=== PATIENT | male | born 1955 | race Caucasian/White ===

== ENCOUNTER 2024-04-09 08:35 | Emergency (ER) | payer MEDICARE, MEDICAID, SELFPAY ==
[2024-04-09 08:43] VITALS: BP 142/96; PULSE 93; RESP 18; TEMP 36.9; O2SAT 100; BMI 22.1
--- NOTE | 2024-04-09 08:48 | PD.EDCHEST ---
ED Chest Pain RME/HPI General Chief Complaint: Chest Pain Stated Complaint: RIGHT RIB PAIN FROM X 2 DAYS Source: patient Arrival date/time: 04/09/24 08:35 68-year-old male with no known medical history presents to the emergency room with a chief complaint of pain and tenderness to his right rib cage. Patient states he fell and hit his right rib cage on a kitchen counter 3 days ago. Patient denies any chest pain. Mode of arrival: ambulatory Limitations: no limitations Related Data Previous Rx's ?Medication ?Instructions ?Recorded ibuprofen 800 mg tablet 800 mg PO TID PRN pain #30 tabs 08/11/22 famotidine 20 mg tablet 20 mg PO BID #30 tabs 09/18/22 sucralfate 1 gram tablet (Carafate) 1 g PO BID #30 tabs 09/18/22 Allergies Allergy/AdvReac Type Severity Reaction Status Date / Time fentanyl Allergy Severe Rash Verified 04/09/24 08:37 Review of Systems Review of Systems Systems Reviewed: All systems reviewed, normal except as documented Constitutional Constitutional: Reports system reviewed and no additional complaints, except as documented, Denies fatigue, Denies fever(s), Denies headache(s) and Denies weakness Eyes Eyes: Reports system reviewed and no additional complaints, except as documented, Denies blurry vision and Denies change in vision ENT Ears, Nose, Mouth, and Throat: Reports system reviewed and no additional complaints, except as documented, Denies otalgia, Denies headache(s), Denies nasal congestion, Denies throat swelling and Denies vertigo Cardiovascular Cardiovascular: Reports system reviewed and no additional complaints, except as documented, Denies chest pain, Denies dyspnea and Denies dyspnea on exertion Respiratory Respiratory: Reports system reviewed and no additional complaints, except as documented, Denies chest congestion, Denies cough, Denies dyspnea, Denies dyspnea on exertion and Denies wheezing Gastrointestinal Gastrointestinal: Reports system reviewed and no additional complaints, except as documented, Denies abdominal pain, Denies cramping, Denies nausea and Denies vomiting Genitourinary Genitourinary: Reports system reviewed and no additional complaints, except as documented, Denies dysuria and Denies hematuria Musculoskeletal Musculoskeletal: Reports system reviewed and no additional complaints, except as documented, Reports arthralgias and Denies back pain Integumentary/Breasts Skin/Breast: Reports system reviewed and no additional complaints, except as documented and Denies wounds Neurologic Neurologic: Reports system reviewed and no additional complaints, except as documented, Denies confusion, Denies headache(s), Denies lack of coordination, Denies vertigo and Denies weakness Psychiatric Psychiatric: Reports system reviewed and no additional complaints, except as documented, Denies anxiety, Denies confusion, Denies depression, Denies paranoia, Denies suicidal ideation and Denies tactile hallucinations Endocrine Endocrine: Reports system reviewed and no additional complaints, except as documented and Denies fatigue Hematologic/Lymphatic Hematologic/Lymphatic: Reports system reviewed and no additional complaints, except as documented and Denies lymphadenopathy Allergic/Immunologic Allergic/Immunologic: Reports system reviewed and no additional complaints, except as documented, Denies throat swelling, Denies urticaria and Denies wheezing ED Exam General Limitations: Present no limitations General appearance: Present alert and in no apparent distress Head Head exam: Present atraumatic Eye Eye exam: Present normal appearance, PERRL and EOMI ENT ENT exam: Present normal exam, normal oropharynx and mucous membranes moist Neck Neck exam: Present normal inspection, full ROM and trachea midline Chest Chest inspection: Present normal inspection, symmetric chest wall rise and tenderness Expanded Chest Exam Trauma: Absent crepitus, wound or penetrating wound Breast: right: tenderness Respiratory Respiratory exam: Present normal lung sounds bilaterally; Absent respiratory distress, wheezes, stridor, accessory muscle use or prolonged expiratory phase Cardiovascular Cardiovascular exam: Present regular rate, normal rhythm and normal heart sounds Abdominal Exam Abdominal exam: Present soft and normal bowel sounds Extremities Exam Extremities exam: Present normal inspection and full ROM Back Exam Back exam: Present normal inspection and full ROM Neurological Exam Neurological exam: Present alert, oriented X3 and CN II-XII intact Psychiatric Psychiatric exam: Present normal affect and normal mood Skin Skin exam: Present warm, dry, intact and normal color Course Quality Measures none Vital Signs Vital signs: Vital Signs Temperature 98.5 F 04/09/24 08:43 Pulse Rate 93 04/09/24 08:43 Respiratory Rate 18 04/09/24 08:43 Blood Pressure 142/96 H 04/09/24 08:43 Pulse Oximetry (%) 100 04/09/24 08:43 Oxygen Delivery Method Room Air 04/09/24 08:43 O2 saturation 100% within normal limits Chest Pain MDM Narrative MDM Narrative:: 68-year-old male with no known medical history presents to the emergency room with a chief complaint of pain and tenderness to his right rib cage. Patient states he fell and hit his right rib cage on a kitchen counter 3 days ago. Patient denies any chest pain. Patient data External records reviewed:: [facility] previous records Clinical information provided by:: patient Social determinants that could affect healthcare access:: none Patient has the following chronic illnesses:: No chronic illness How is presenting disease/condition affected by chronic disease/condition?: no chronic disease Evaluation data The following diagnostics were reviewed and interpreted by me:: lab results and radiology exam(s) Lab and/or radiology exams considered but not ordered:: Labs and radiology exams considered and ordered Interpretation Summary: Rib x-ray- Medications / Prescriptions Medications or Prescriptions considered but not ordered:: No medication given Medication administrations:: No medication given Consultations Consultation(s) initiated? (list below): No Diagnosis Chest Pain Differential Diagnosis: fracture of rib, pneumothorax, costochondritis and chest pain Admission Indicated Admission indicated?: not indicated Admission Request Was there a request for admission?: No Disposition Plan Disposition Plan: Discharge Discharge Attestation Discharge Attestation: The patient and all family members were given an opportunity to ask questions and understood the discharge instructions. Discharge instructions specifically effects, indications for sooner follow up or return to the emergency department, and the expected course of current diagnosis. Patient condition: Stable Discharge Plan Prescriptions/Referrals Prescriptions/Med Rec: No Action ibuprofen 800 mg tablet 800 mg PO TID PRN (Reason: pain) Qty: 30 0RF sucralfate [Carafate] 1 gram tablet 1 g PO BID Qty: 30 1RF famotidine 20 mg tablet 20 mg PO BID Qty: 30 1RF Patient/Caregiver Discharge Instructions Print Language: Czech
--- NOTE | 2024-04-09 08:50 | XR_ITS ---
Examination: Ribs, right, with PA chest, 5 views Technique: Chest PA, RIBS AP, RPO, LPO, AP coned lower ribs 5 views Exam date and time: April 09, 2024 0940 hrs. Indications: Patient fell 2 days ago with injury to the right chest, right chest pain soft nodular opacities in the upper lung zone 17 mm cavity in the right midlung zone No pneumothorax Normal heart size Moderate osteopenia Old fracture right 10th rib anteriorly Acute appearing fracture anterior right eighth rib with mild offset Impression: Acute appearing fracture right eighth rib anteriorly with mild offset Nodular parenchymal disease in the right upper lobe 17 mm cavitary lesion right midlung Differential would include active tuberculosis, consider CT chest without contrast follow-up
--- NOTE | 2024-04-09 10:55 | PD.EDRME ---
Rapid Medical Screening Exam [facility] Arrival date/time: 04/09/24 08:35 68-year-old male with no known medical history presents to the emergency room with a chief complaint of pain and tenderness to his right rib cage. Patient states he fell and hit his right rib cage on a kitchen counter 3 days ago. Patient denies any chest pain. I have greeted and performed a focused initial assessment of this patient. A comprehensive ED assessment and evaluation of the patient, analysis of all test results, and completion of the medical decision making process will be conducted by additional ED providers. Chief Complaint: Chest Pain Time Seen by Provider: 04/09/24 08:50 Vital signs: Vital Signs Temperature 98.5 F 04/09/24 08:43 Pulse Rate 93 04/09/24 08:43 Respiratory Rate 18 04/09/24 08:43 Blood Pressure 142/96 H 04/09/24 08:43 Pulse Oximetry (%) 100 04/09/24 08:43 Oxygen Delivery Method Room Air 04/09/24 08:43 Vital signs reviewed by provider: Yes
--- NOTE | 2024-04-09 12:08 | PC.NURSE ---
PT HAS BEEN CALLED MULTIPLE TIMES BY CT AND LAB AND THEY HAVE RECEIVED NO ANSWER. PROVIDER KAJAL IS AWARE.
== END 2024-04-09 13:19 | disposition left against medical advice (07) ==
PROVIDERS: Emergency Provider Emergency Medicine
DX: R07.81 Pleurodynia (principal); Z53.29 Procedure and treatment not carried out because of patient's decision for other reasons
CPT/HCPCS: 71101; 80053; 85025; 86635; 99281

== ENCOUNTER 2024-06-02 01:22 | Emergency (ER) | payer MEDICARE, MEDICAID, SELFPAY ==
[2024-06-02 01:22] VITALS: BMI 21.5
[2024-06-02 01:28] VITALS: BP 132/76; PULSE 87; RESP 18; TEMP 37.1; O2SAT 98
--- NOTE | 2024-06-02 01:30 | EDNOTE_ITS ---
ED Skin Abcess FB-RME/HPI General Chief complaint: Skin/Abscess/Foreign Body Stated complaint: BELLY BUTTON REDNESS Time Seen by Provider: 06/02/24 01:28 Arrival date/time: 06/02/24 01:22 68 year old male present to emergency room with c/o anthony button redness for 1 day. update with tetanus LOCATION: belly button SEVERITY: Symptoms are described as being severe with limitations on activities of daily living QUALITY: Symptoms are described as being dull or achy CONTEXT: The patient is unable to identify any inciting events. DURATION/TIMING: The symptoms started approximately one day ago ASSOCIATED SYMPTOMS: The patient is unable to identify any other associated symptoms. MODIFYING FACTORS: The patient is unable to identify any alleviating or aggravating symptoms. PERTINENT ROS: denies IVDU, states no immunocompromising condition, denies any penetrating trauma, no fever, no unexplained nausea or vomiting, no headache, no chest pain REVIEW OF SYSTEMS: See History of Present Illness - with the exception of those mentioned in the history of present illness, all other systems reviewed and reported as negative GENERAL: In general the patient is awake, interactive, in an emergency department gurney. HEAD/EYES/EARS/NOSE/THROAT: normo-cephalic, atraumatic, mucus membranes are moist, anicteric, palpebral conjunctiva is pink, trachea is midline. ABDOMEN: soft, + belly button superficial infection no red streaking no masses appreciated BACK: normal range of motion without pain. NEUROLOGICAL: cranio-facial features are symmetric, moves all four extremities equally without obvious limitations or weakness. EXTREMITY: no tenderness to palpation over the long bones or large joints of the bilateral upper and lower extremities, no joint swelling, no joint erythema, no signs of trauma, no unilateral leg swelling and no peripheral edema. SKIN: warm, dry, well-perfused, no jaundice, no rash, no telangiectasias or petechia. PSYCH: calm, cooperative, no evidence of psychosis or agitation Related Data Previous Rx's ?Medication ?Instructions ?Recorded ibuprofen 800 mg tablet 800 mg PO TID PRN pain #30 t abs 08/11/22 famotidine 20 mg tablet 20 mg PO BID #30 tabs sucralfate 1 gram tablet (Carafate) 1 g PO BID #30 tab s 09/18/22 Allergies Allergy/AdvReac Type Severity Reaction Status Date / Time fentanyl Allergy Severe Rash Verified 06/02/24 01:24 Course Course Course Narrative: Patient is admitted to Emergency Department and evaluated. Patient appears well and is non-toxic and well hydrated. Patient appears to have an infected wound cellulitis. applied triple antibiotic, avoid touching and rubbing area. Instructed to apply warm compresses. Quality Measures none Vital Signs Vital signs: Vital Signs Temperature 98.7 F 06/02/24 01:28 Pulse Rate 87 06/02/24 01:28 Respiratory Rate 18 06/02/24 01:28 Blood Pressure 132/76 H 06/02/24 01:28 Pulse Oximetry (%) 98 06/02/24 01:28 Oxygen Delivery Method Room Air 06/02/24 01:28 Skin / Abscess / Foreign Body Patient data External records reviewed:: [facility] previous records Clinical information provided by:: patient Social determinants that could affect healthcare access:: housing Patient has the following chronic illnesses:: as stated in chart How is presenting disease/condition affected by chronic disease/condition?: uneffected by Evaluation data The following diagnostics were reviewed and interpreted by me:: other (specify) (na ) Lab and/or radiology exams considered but not ordered:: na Interpretation Summary: na Medications / Prescriptions Medications or Prescriptions considered but not ordered:: na Medication administrations:: na Consultations Consultation(s) initiated? (list below): No Diagnosis Skin/Abscess Differential Diagnosis: cellulitis and impetigo Most likely diagnosis given after review of the tests above:: infect belly button Admission Indicated Admission indicated?: not indicated Admission Request Was there a request for admission?: No Disposition Plan Disposition Plan: Discharge Discharge Attestation Discharge Attestation: The patient and all family members were given an opportunity to ask questions and understood the discharge instructions. Discharge instructions specifically effects, indications for sooner follow up or return to the emergency department, and the expected course of current diagnosis. Patient condition: Stable Discharge Plan Plan Patient Disposition: HOME (Self Care) Health Concerns: Follow with PMD as directed apply triple antibiotic to affect area, clean and dry daily Return to ED if sx worsen Prescriptions/Referrals Prescriptions/Med Rec: No Action ibuprofen 800 mg tablet 800 mg PO TID PRN (Reason: pain) Qty: 30 0RF sucralfate [Carafate] 1 gram tablet 1 g PO BID Qty: 30 1RF famotidine 20 mg tablet 20 mg PO BID Qty: 30 1RF Problem List Clinical Impression: Infected pierced belly button Patient/Caregiver Discharge Instructions Education Materials: ED Wound Check (Infection) Print Language: Serbian Stand Alone Forms: Katie Award Info., Patient Portal Info Letter
== END 2024-06-02 01:55 | disposition home or self-care (01) ==
LOC: SERX 04:36
PROVIDERS: Emergency Provider Emergency Medicine; PCP Family Medicine
DX: L08.9 Local infection of the skin and subcutaneous tissue, unspecified (principal)
CPT/HCPCS: 99281

== ENCOUNTER 2024-06-17 09:38 | Emergency (ER) | payer MEDICARE, MEDICAID, SELFPAY ==
[2024-06-17 10:06] VITALS: BP 158/92; PULSE 78; RESP 16; TEMP 36.9; O2SAT 96
--- NOTE | 2024-06-17 10:13 | PD.EDSKIN ---
ED Skin Abcess FB-RME/HPI General Chief complaint: Animal Bite Stated complaint: SPIDER BITE ON ANKLE LAST NIGHT; VERY PAINFUL Time Seen by Provider: 06/17/24 09:57 Arrival date/time: 06/17/24 09:38 68-year-old male presents to emergency department today for complaint of spider bite medial aspect of the right ankle since last night patient reports pain to the ankle at the site of bite Limitations: no limitations Related Data Previous Rx's ?Medication ?Instructions ?Recorded ibuprofen 800 mg tablet 800 mg PO TID PRN pain #30 tabs 08/11/22 famotidine 20 mg tablet 20 mg PO BID #30 tabs 09/18/22 sucralfate 1 gram tablet (Carafate) 1 g PO BID #30 tabs 09/18/22 clindamycin HCl 300 mg capsule 300 mg PO TID 7 days #21 caps 06/17/24 ibuprofen 600 mg tablet 600 mg PO Q6H #30 tabs 06/17/24 mupirocin 2 % topical ointment 1 applic topical TID 10 days #22 06/17/24 grams Allergies Allergy/AdvReac Type Severity Reaction Status Date / Time fentanyl Allergy Severe Rash Verified 06/17/24 09:42 Review of Systems Review of Systems Systems Reviewed: All systems reviewed, normal except as documented Constitutional Constitutional: Reports system reviewed and no additional complaints, except as documented, Denies fever(s) and Denies headache(s) Eyes Eyes: Reports system reviewed and no additional complaints, except as documented and Denies blurry vision ENT Ears, Nose, Mouth, and Throat: Reports system reviewed and no additional complaints, except as documented, Denies headache(s), Denies nasal congestion and Denies nasal discharge Cardiovascular Cardiovascular: Reports system reviewed and no additional complaints, except as documented, Denies chest pain and Denies dyspnea Respiratory Respiratory: Reports system reviewed and no additional complaints, except as documented, Denies chest congestion, Denies cough and Denies dyspnea Gastrointestinal Gastrointestinal: Reports system reviewed and no additional complaints, except as documented and Denies abdominal pain Integumentary/Breasts Skin/Breast: Reports system reviewed and no additional complaints, except as documented, Denies rash and Reports other (Mild erythema, what appears to be insect bite medial aspect right ankle) Neurologic Neurologic: Reports system reviewed and no additional complaints, except as documented, Reports as per HPI and Denies headache(s) Past Medical History Past Medical History NEUROLOGIC: Negative Neurological Disorders CARDIAC: Positive Cardiac Disorders and Hypertension; Negative Congestive Heart Failure RESPIRATORY: Negative Chronic Obstructive Pulmonary Disease (COPD) or Asthma GASTROINTESTINAL: Negative Gastrointestinal Disorders GENITOURINARY: Negative Genitourinary Disorders or Renal Disease MUSCULOSKELETAL: Negative Musculoskeletal Disorders ENDOCRINE: Negative Endocrine Disorders, Diabetes Mellitus Type 1 or Diabetes Mellitus Type 2 HEMATOLOGIC: Negative Blood Disorders or Sickle Cell Disease Social History SMOKING STATUS: Current every day smoker ED Exam General Limitations: Present no limitations General appearance: Present alert and in no apparent distress Head Head exam: Present atraumatic Eye Eye exam: Present normal appearance, PERRL and EOMI ENT ENT exam: Present normal exam, normal oropharynx and mucous membranes moist Neck Neck exam: Present normal inspection, full ROM and trachea midline Chest Chest inspection: Present normal inspection and symmetric chest wall rise Respiratory Respiratory exam: Present normal lung sounds bilaterally Cardiovascular Cardiovascular exam: Present regular rate, normal rhythm and normal heart sounds Abdominal Exam Abdominal exam: Present soft and normal bowel sounds Extremities Exam Extremities exam: Present normal inspection and full ROM Back Exam Back exam: Present normal inspection and full ROM Neurological Exam Neurological exam: Present alert, oriented X3 and CN II-XII intact Psychiatric Psychiatric exam: Present normal affect and normal mood Skin Skin exam: Present warm, dry and other (Insect bite medial aspect right ankle) Course Quality Measures none Vital Signs Vital signs: Vital Signs Temperature 98.4 F 06/17/24 10:06 Pulse Rate 78 06/17/24 10:06 Respiratory Rate 16 06/17/24 10:06 Blood Pressure 158/92 H 06/17/24 10:06 Pulse Oximetry (%) 96 06/17/24 10:06 Oxygen Delivery Method Room Air 06/17/24 10:06 O2 saturation 96% room air within normal limits Skin / Abscess / Foreign Body MDM Narrative MDM Narrative:: 68-year-old male presents to emergency department today for complaint of spider bite medial aspect of the right ankle since last night patient reports pain to the ankle at the site of bite On exam patient well-appearing patient does not appear toxic no acute distress On exam patient has what appears to be a bite to the medial aspect of right ankle patient be treated course of antibiotics Patient discharged home in no distress to follow-up with primary care doctor in the next 24 to 48 hours and for any worsening symptoms to return to the ER immediately Patient data External records reviewed:: [facility] previous records Clinical information provided by:: patient Social determinants that could affect healthcare access:: none Patient has the following chronic illnesses:: See history How is presenting disease/condition affected by chronic disease/condition?: exacerbated by Evaluation data The following diagnostics were reviewed and interpreted by me:: other (specify) Lab and/or radiology exams considered but not ordered:: Consider not ordered Interpretation Summary: N/A Medications / Prescriptions Medications or Prescriptions considered but not ordered:: Given Medication administrations:: Given Consultations Consultation(s) initiated? (list below): No Diagnosis Skin/Abscess Differential Diagnosis: abscess of skin or subcutaneous tissue and cellulitis Most likely diagnosis given after review of the tests above:: Insect bite Admission Indicated Admission indicated?: not indicated Admission Request Was there a request for admission?: No Disposition Plan Disposition Plan: Discharge Discharge Attestation Discharge Attestation: The patient and all family members were given an opportunity to ask questions and understood the discharge instructions. Discharge instructions specifically effects, indications for sooner follow up or return to the emergency department, and the expected course of current diagnosis. Patient condition: Stable Discharge Plan Plan Patient Disposition: HOME (Self Care) Discharge Disposition comment: Stable Prescriptions/Referrals Prescriptions/Med Rec: New clindamycin HCl 300 mg capsule 300 mg PO TID 7 Days Qty: 21 0RF mupirocin 2 % ointment 1 applic topical TID 10 Days Qty: 22 0RF ibuprofen 600 mg tablet 600 mg PO Q6H Qty: 30 0RF No Action ibuprofen 800 mg tablet 800 mg PO TID PRN (Reason: pain) Qty: 30 0RF sucralfate [Carafate] 1 gram tablet 1 g PO BID Qty: 30 1RF famotidine 20 mg tablet 20 mg PO BID Qty: 30 1RF Problem List Clinical Impression: Insect bite of ankle Patient/Caregiver Discharge Instructions Education Materials: ED Insect Bite Additional Instructions: Please follow up with your primary care doctor in the next 24-48hrs for any worsening symptoms return here immediately Print Language: Czech Stand Alone Forms: Katie Award Info., Work/School Release, Patient Portal Info Letter PA/[employer] Supervising Physician PA/[employer] Supervising Physician: Dr. brooks
== END 2024-06-17 10:19 | disposition home or self-care (01) ==
LOC: SERX 10:30
PROVIDERS: Emergency Provider Emergency Medicine
DX: S90.561A Insect bite (nonvenomous), right ankle, initial encounter (principal); W57.XXXA Bitten or stung by nonvenomous insect and other nonvenomous arthropods, initial encounter
CPT/HCPCS: 99281

== ENCOUNTER 2024-07-24 13:32 | Emergency (ER) | payer MEDICARE, MEDICAID, SELFPAY ==
[2024-07-24 13:43] VITALS: BP 148/102; PULSE 84; RESP 20; TEMP 36.7; O2SAT 97
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
--- NOTE | 2024-07-24 14:05 | EDNOTE_ITS ---
ED General RME/HPI General Chief complaint: Eye Problems Stated complaint: Metal in right eye Time Seen by Provider: 07/24/24 13:49 Arrival date/time: 07/24/24 13:32 Limitations: no limitations RME / HPI RME / HPI narrative: 07/24/24 13:32 This is a case of 68-year-old male who came in the emergency room due to right eye injury history of present illness started few minutes prior to arrival in the emergency room and the patient accidentally stabbed by a metal in his right eye now with bleeding under the right lower eyelid DR. NICOLE MCMULLEN ED EVALUATION: 68 year old male presents to the Emergency Department with complaint of right eye injury. Prior to arrival, patient was pulling a piece of metal and it got loose and hit his right eye causing a right eye injury/ abrasion (see exam). No other injuries reported. Related Data Previous Rx's ?Medication ?Instructions ?Recorded ibuprofen 800 mg tablet 800 mg PO TID PRN pain #30 t abs 08/11/22 famotidine 20 mg tablet 20 mg PO BID #30 tabs sucralfate 1 gram tablet (Carafate) 1 g PO BID #30 tab s 09/18/22 ibuprofen 600 mg tablet 600 mg PO Q6H #30 tabs 06/17 tobramycin 0.3 % eye drops 1 drp ophthalmic (eye) Q2H #5 mL 07/24/24 tramadol 50 mg tablet 50 mg PO BID PRN pain #7 tab s 07/24/24 Allergies Allergy/AdvReac Type Severity Reaction Status Date / Time fentanyl Allergy Severe Rash Verified 07/24/24 13:36 Review of Systems Review of Systems Systems Reviewed: All systems reviewed, normal except as documented Past Medical History Past Medical History CARDIAC: Positive Cardiac Disorders and Hypertension Social History SMOKING STATUS: Current every day smoker SUBSTANCE USE: marijuana and methamphetamine ED Exam General Limitations: Present no limitations General appearance: Present alert and in no apparent distress Eye Eye exam: Present other (An abrasion to the junction of the right conjunctiva and cornea. Normal vision. Also abrasion of lower eyelid, right.) ENT ENT exam: Present normal exam, normal oropharynx and mucous membranes moist Neck Neck exam: Present normal inspection, full ROM and trachea midline Chest Chest inspection: Present normal inspection and symmetric chest wall rise Respiratory Respiratory exam: Present normal lung sounds bilaterally Cardiovascular Cardiovascular exam: Present regular rate, normal rhythm and normal heart sounds Abdominal Exam Abdominal exam: Present soft and normal bowel sounds Extremities Exam Extremities exam: Present normal inspection and full ROM Back Exam Back exam: Present normal inspection and full ROM Neurological Exam Neurological exam: Present alert, oriented X3 and CN II-XII intact Psychiatric Psychiatric exam: Present normal affect and normal mood Skin Skin exam: Present warm, dry, intact and normal color Course Quality Measures none Orders Category Date Time Status Fluorescein-Benoxin 0.3%-0.4% Med 07/24/24 15:24 Discontinued 1 drop BOTH EYES X1 ONE HYDROcodone*/APAP 5/325 [[place] 5/325] Med 07/24/24 13:55 Discontinued 1 tab PO X1 ONE HYDROmorphone INJ [Dilaudid Inj] Med 07/24/24 13:59 Discontinued 1 mg IM X1 ONE Ondansetron Odt [Zofran Odt] Med 07/24/24 13:59 Discontinued 4 mg PO X1 ONE TETRACAINE Op Courtney 0.5% [Pontocaine Op Courtney 0.5%] Med 07/24/24 13:55 Discontinued 1 drop RIGHT EYE X1 ONE TETRACAINE Op Courtney 0.5% [Pontocaine Op Courtney 0.5%] Med 07/24/24 13:59 Discontinued 1 drop RIGHT EYE X1 ONE Vital Signs Vital signs: Vital Signs Temperature 98.0 F 07/24/24 13:43 Pulse Rate 84 07/24/24 13:43 Respiratory Rate 20 07/24/24 13:43 Blood Pressure 148/102 H 07/24/24 13:43 Pulse Oximetry (%) 97 07/24/24 13:43 Oxygen Delivery Method Room Air 07/24/24 13:43 Discharge Plan Plan Patient Disposition: HOME (Self Care) Patient condition on transfer: Stable Prescriptions/Referrals Prescriptions/Med Rec: New tramadol 50 mg tablet 50 mg PO BID PRN (Reason: pain) Qty: 7 0RF tobramycin 0.3 % drops 1 drp ophthalmic (eye) Q2H Qty: 5 0RF No Action ibuprofen 600 mg tablet 600 mg PO Q6H Qty: 30 0RF ibuprofen 800 mg tablet 800 mg PO TID PRN (Reason: pain) Qty: 30 0RF sucralfate [Carafate] 1 gram tablet 1 g PO BID Qty: 30 1RF famotidine 20 mg tablet 20 mg PO BID Qty: 30 1RF Referrals: Carlos Manuel Hale MD [Primary Care Provider] - In 1 week Problem List Clinical Impression: Contusion of eye, right, Abrasion of cornea, right, Abrasion of eyelid, right Patient/Caregiver Discharge Instructions Discharge Activity: activity as tolerated Education Materials: ED Abrasions, ED Eye Contusion, ED Corneal Abrasion Print Language: Dutch Stand Alone Forms: Katie Award Info., Patient Portal Info Letter MDM Narrative Procedures done or offered: Procedure: Fluorescein staining of the right cornea Reason for Exam: right eye injury, suspected corneal abrasion Exam showed there was an abrasion to the junction of the conjunctiva and cornea. Patient tolerated procedure well. No complications. Clinical Information Provided by patient Medical Records Reviewed [facility] Meds/Rx Considered, not Ordered None Labs/Rad/Tests considered, not Ordered None Chronic Illness/Social Conditions which may negatively complicate care or outcome(s)-explain: ETOH/drugs/substance abuse (methamphetamine abuse, marijuana abuse) EKG EKG not done Lab Interpretation Labs: none Imaging Imaging interpretation: none Medication Administration(s) Medication Administration History Discontinued Medications Hydrocodone Bitart/Acetaminophen (Hydrocodone/Apap 5/325 Tablet) 1 tab PO X1 ONE Stop: 07/24/24 13:56 Last Admin: 07/24/24 15:32 Dose: Not Given Documented By: ИРИНА Non-Admin Reason: Discontinued Fluorescein Sodium/Benoxinate HCl (Fluorescein-Benoxin 0.3%-0.4% 1 Drop) 1 drop BOTH EYES X1 ONE Stop: 07/24/24 15:25 Last Admin: 07/24/24 15:31 Dose: 1 drop Documented By: OA Hydromorphone HCl (Hydromorphone Inj 2 Mg/Ml Vial) 1 mg IM X1 ONE Stop: 07/24/24 14:00 Last Admin: 07/24/24 15:30 Dose: 1 mg Documented By: OA Ondansetron HCl (Ondansetron Odt 4 Mg Tabrap) 4 mg PO X1 ONE; Protocol Stop: 07/24/24 14:00 Last Admin: 07/24/24 15:34 Dose: 4 mg Documented By: ИРИНА Tetracaine HCl (Tetracaine Pf Op Courtney 0.5% 4 Ml Drpette) 1 drop RIGHT EYE X1 ONE Stop: 07/24/24 13:56 Last Admin: 07/24/24 15:32 Dose: Not Given Documented By: OA Non-Admin Reason: Discontinued Tetracaine HCl (Tetracaine Pf Op Courtney 0.5% 4 Ml Drpette) 1 drop RIGHT EYE X1 ONE Stop: 07/24/24 14:00 Last Admin: 07/24/24 15:31 Dose: 1 drop Documented By: OA Diagnosis Differential diagnosis: eye injury, corneal abrasions Most likely dx, and/or detailed dx discussion: Contusion of eye, right Abrasion of cornea, right Abrasion of eyelid, right Dispositon Disposition: Discharge Home
[2024-07-24] MEDS: HYDROmorphone INJ 2 MG/ML VIAL 1 MG IM (15:30)
[2024-07-24] MEDS: FLUORESCEIN-BENOXIN 0.3%-0.4% 1 DROP BOTH EYES (15:31)
[2024-07-24] MEDS: TETRACAINE PF OP SOL 0.5% 4 ML DRPETTE 1 DROP RIGHT EYE (15:31)
[2024-07-24] MEDS: ONDANSETRON ODT 4 MG TABRAP PO (15:34)
== END 2024-07-24 16:04 | disposition home or self-care (01) ==
PROVIDERS: Emergency Provider Emergency Medicine; PCP Family Medicine
DX: S05.01XA Injury of conjunctiva and corneal abrasion without foreign body, right eye, initial encounter (principal); S00.211A Abrasion of right eyelid and periocular area, initial encounter; W22.8XXA Striking against or struck by other objects, initial encounter
CPT/HCPCS: 99282; J1171; Q0162; Z7110; Z7610

== ENCOUNTER 2025-02-10 16:17 | Emergency (ER) | payer MEDICARE, MEDICAID, SELFPAY ==
[2025-02-10 16:19] VITALS: BP 161/95; PULSE 89; RESP 20; TEMP 36.4; O2SAT 92
[2025-02-10 16:31] VITALS: BMI 27.1
--- NOTE | 2025-02-10 16:34 | PC.NURSE ---
PT STATES I CAN'T FEEL MY BODY. ADMITS TO METH AND EATING I LOT OF MJ BROWNIES TODAY. FRIENDS CALLED FOR AMBULANCE WHEN PT STARTED ACTING DIFFERENT.
--- NOTE | 2025-02-10 16:45 | EDNOTE_ITS ---
Altered Mental Status RME/HPI General Chief Complaint: General Adult/Misc Complain Stated Complaint: CAN'T FEEL MY BODY + METH AND MJ Time Seen by Provider: 02/10/25 16:42 Arrival date/time: 02/10/25 16:17 RME / HPI RME / HPI narrative: See [facility] for Dr. Castro's HPI documentation. Related Data Previous Rx's ?Medication ?Instructions ?Recorded ibuprofen 800 mg tablet 800 mg PO TID PRN pain #30 t abs 08/11/22 famotidine 20 mg tablet 20 mg PO BID #30 tabs sucralfate 1 gram tablet (Carafate) 1 g PO BID #30 tab s 09/18/22 ibuprofen 600 mg tablet 600 mg PO Q6H #30 tabs 06/17 tobramycin 0.3 % eye drops 1 drp ophthalmic (eye) Q2H #5 mL 07/24/24 tramadol 50 mg tablet 50 mg PO BID PRN pain #7 tab s 07/24/24 Allergies Allergy/AdvReac Type Severity Reaction Status Date / Time fentanyl Allergy Severe Rash Verified 02/10/25 16:34 Review of Systems Review of Systems Systems Reviewed: All systems reviewed, normal except as documented Past Medical History Past Medical History CARDIAC: Positive Cardiac Disorders and Hypertension Social History SMOKING STATUS: Current every day smoker SUBSTANCE USE: marijuana and methamphetamine ED Exam Narrative Physical exam: See [facility] for Dr. Castro's physical exam documentation. Course Quality Measures none Orders Category Date Time Status EKG (ED ONLY) *Do not use* NOW Care 02/10/25 16:57 Active Saline [Insert IV] NOW Care 02/10/25 16:56 Active Straight [In and Out Catheter] X1 Care 02/10/25 16:[address] head/brain wo con Stat Exams 02/10/25 16:57 Ordered EKG (ED Only) Stat Exams 02/10/25 16:57 Ordered XR chest 1V portable Stat Exams 02/10/25 16:57 Ordered ABG [Arterial Blood Gas] Stat Lab 02/10/25 16:57 Ordered Acetaminophen Stat Lab 02/10/25 16:57 Ordered Alcohol, Blood Medical Stat Lab 02/10/25 16:57 Ordered Ammonia Stat Lab 02/10/25 16:57 Ordered Beta Hydroxybutyrate Stat Lab 02/10/25 16:57 Ordered Bilirubin,Direct Stat Lab 02/10/25 16:57 Ordered CBC Stat Lab 02/10/25 16:57 Ordered CK [Creatine Kinase] Stat Lab 02/10/25 16:57 Ordered CMP [Comprehensive Metabolic Panel] Stat Lab 02/10/25 16:57 Ordered Drug Screen,Urine Stat Lab 02/10/25 16:57 Ordered Magnesium Stat Lab 02/10/25 16:57 Ordered Salicylate Stat Lab 02/10/25 16:57 Ordered TSH [Thyroid Stimulating Hormone] Stat Lab 02/10/25 16:57 Ordered Troponin I Stat Lab 02/10/25 16:57 Ordered UA, C/S IF [Urinalysis, C/S if Indicated] Stat Lab 02/10/25 16:58 Ordered NALOXONE INJ (Syringe) [Narcan Inj (Syringe)] Med 02/10/25 16:56 Discontinued 2 mg IV X1 ONE Ondansetron Inj [Zofran Inj] Med 02/10/25 16:56 Discontinued 4 mg IVP X1 ONE Sodium Chloride 0.9% 1000 ml [Ns] 1,000 ml Med 02/10/25 16:56 Active IV 999 mls/hr Vital Signs Vital signs: Vital Signs Temperature 97.5 F 02/10/25 16:19 Pulse Rate 89 02/10/25 16:19 Respiratory Rate 20 02/10/25 16:19 Blood Pressure 161/95 H 02/10/25 16:19 Pulse Oximetry (%) 92 L 02/10/25 16:19 Oxygen Delivery Method Room Air 02/10/25 16:19 Pulse ox is 92% on room air which is low. Altered Mental Status MDM Narrative MDM Narrative:: This section includes all my notes and documentations, including HPI, PE, and ED course. Jaime Castro MD HPI: 69-year-old male here by ambulance for behavior change. Someone in the household called 911. Can't obtain history from the patient due to possible AMS. According to EMS, he was alert and oriented and ambulated normally. ROS: Can't obtain from the patient due to current clinical condition. Physical Exam: General: Severely lethargic. Eyes: Conjunctivae and lids clear. EOMI. PERRL. ENT: No signs of head trauma. Neck: Supple. No tenderness. Heart: RRR. Lungs: No respiratory distress. Decreased air movement. No severe rhonchi, wheezing, rales. Chest: No tenderness. Abdomen: Soft and nontender. Normal bowel sounds. No distension. No rebound or guarding. Back: No tenderness. Skin: Warm and dry. Neuro: Cranial Nerves II-XII grossly intact. No peripheral motor deficits. Musculoskeletal: All major joints and bones are not tender with no limited ROM. I reviewed EMS notes. I ordered IVF, Narcan 2 mg IV, and diagnostic tests. At 6 PM on 02/10/25, the care of the patient was transferred to Dr. Heredia. Jaime Castro MD Patient data External records reviewed:: [facility] previous records and EMS form Clinical information provided by:: EMS Social determinants that could affect healthcare access:: substance use Patient has the following chronic illnesses:: Hypertension How is presenting disease/condition affected by chronic disease/condition?: uneffected by Evaluation data The following diagnostics were reviewed and interpreted by me:: other (specify) (diagnostics ordered and are pending ) Lab and/or radiology exams considered but not ordered:: None Interpretation Summary: Diagnostics are pending. Medications / Prescriptions Medications or Prescriptions considered but not ordered:: None Medication administrations:: Medication Administration History Sodium Chloride (Ns) 1,000 mls @ 999 mls/hr IV .Q1H1M ONE Stop: 02/10/25 17:56 Discontinued Medications Naloxone HCl (Naloxone Inj 1 Mg/Ml Syringe 2 Ml) 2 mg IV X1 ONE Stop: 02/10/25 16:57 Ondansetron HCl (Ondansetron Inj 2 Mg/Ml Inj 2 Ml) 4 mg IVP X1 ONE; Protocol Stop: 02/10/25 16:57 I ordered IVF, Zofran 4 mg IV, and Narcan 2 mg IV. Consultations Consultation(s) initiated? (list below): No Diagnosis Differential diagnosis altered mental status: alcoholic intoxication, altered mental status, delirium, dementia, hypoglycemia, hyponatremia, subarachnoid hemorrhage and sepsis Most likely diagnosis given after review of the tests above:: Diagnostic tests are pending. Admission Indicated Admission indicated?: not indicated Explain why admission is indicated or not indicated:: Diagnostic tests are pending. Admission Request Was there a request for admission?: No Disposition Plan Disposition Plan: other (specify) (Care signed out to Dr. Heredia ) Discharge Plan Prescriptions/Referrals Prescriptions/Med Rec: No Action ibuprofen 600 mg tablet 600 mg PO Q6H Qty: 30 0RF tramadol 50 mg tablet 50 mg PO BID PRN (Reason: pain) Qty: 7 0RF tobramycin 0.3 % drops 1 drp ophthalmic (eye) Q2H Qty: 5 0RF ibuprofen 800 mg tablet 800 mg PO TID PRN (Reason: pain) Qty: 30 0RF sucralfate [Carafate] 1 gram tablet 1 g PO BID Qty: 30 1RF famotidine 20 mg tablet 20 mg PO BID Qty: 30 1RF Problem List Clinical Impression: AMS (altered mental status) Patient/Caregiver Discharge Instructions Print Language: Yi
--- NOTE | 2025-02-10 16:57 | XR_ITS ---
Examination: CT brain head without contrast. 2-D sagittal coronal reconstructions Date and time of exam: February 10, 2025, 1807 hours INDICATIONS: Altered mental status today COMPARISON: December 13, 2022 CTDI: vol (mGy): 46.4 DLP: (mGycm): 886 Technique: Multiple CT axial sections of the brain have been obtained, 5 mm slice thickness. Contrast has not been administered. 2-D sagittal, coronal reconstructions have been obtained Low dose protocols were performed. One or more of the following dose reduction techniques were used; automated exposure control, adjustment of the mA and/or KV according to patient size, use of iterative reconstruction technique. Findings: No significant ventricular enlargement. Intra-axial or extra-axial hemorrhage density is not seen. No mass effect or midline shift Basal cisterns are not remarkable. Fourth ventricle is midline. Cranial vault intact. Impression: Negative for acute hemorrhage, mass effect or midline shift Advise clinical correlation and follow-up accordingly
--- NOTE | 2025-02-10 16:57 | XR_ITS ---
EXAMINATION: AP chest single view TECHNIQUE: AP portable upright chest single view Date and time: February 10, 2025, 7011 hours, comparison April 09, 2024 INDICATION: Shortness of breath today. FINDINGS: Again noted pulmonary nodule right upper lobe Normal heart size Pneumonia both bases Mild vascular congestion Ectatic thoracic aorta Prominent osteopenia IMPRESSION: Mild bibasilar pneumonia
--- NOTE | 2025-02-10 16:57 | EKG_ITS ---
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
[2025-02-10 17:14] LABS: Basophils # (Auto) 0.1 Thou/mm3 (0.0-0.2); Basophils % (Auto) 1 % (0-2.5); Eosinophils # (Auto) 0.3 Thou/mm3 (0.0-0.5); Eosinophils % (Auto) 4 % (0-10); Hematocrit 41.1 % (41.0-53.0); Hemoglobin 14.5 g/dL (13.5-16.0); Immature Granulocytes Auto 0.04 Thou/mm3 (0.00-0.00); Lymphocytes # (Auto) 1.4 Thou/mm3 (1.0-4.8); Lymphocytes % (Auto) 17 % (10-50); Mean Corpuscular HGB Conc 35.3 g/dl (31.0-37.0); Mean Corpuscular Hemoglobin 32.6 pg (25.0-35.0); Mean Corpuscular Volume 92 fL (80-100); Monocytes # (Auto) 0.6 Thou/mm3 (0.0-0.8); Monocytes % (Auto) 7 % (0-12); Neutrophils # (Auto) 6.0 Thou/mm3 (1.8-7.7); Neutrophils % (Auto) 72 % (37-80); Nucleated Red Blood Cell # 0.00 Thou/mm3 (0.00-0.00); Nucleated Red Blood Cell % 0 /100 WBC (0); Platelet Count 167 Thou/mm3 (140-440); RDW Standard Deviation 40.8 fL (35.1-43.9); Red Blood Count 4.45 Miln/mm3 (4.50-5.90); White Blood Count 8.4 Thou/mm3 (3.8-10.6)
[2025-02-10] MEDS: NALOXONE INJ 1 MG/ML SYRINGE 2 ML 2 MG IV (17:23)
[2025-02-10] MEDS: ONDANSETRON INJ 2 MG/ML INJ 2 ML 4 MG IVP (17:23)
[2025-02-10] MEDS: SODIUM CHLORIDE 0.9% 1000 ML 1,000 ML 999 ML IV (17:25)
[2025-02-10 17:31] LABS: Allen Test Performed/OK; Base Excess 9 (-3-3); HCO3 36 mEq/L (20-26); Inspired Oxygen, FIO2 21 %; O2 Saturation 99 % (91-98); PCO2 55 mmHg (32.0-48.0); PO2 123 mmHg (83-108); Puncture Site Left Radial; pH, Arterial 7.42 (7.35-7.45)
[2025-02-10 17:32] LABS: Ammonia 26 uMol/L (11-32); Beta Hydroxybutyrate 0.1 mmol/L (<0.6)
[2025-02-10 17:44] LABS: Collection Type, Urine Clean Catch; Squamous Epithelial Cell,Urine 0 /hpf (0-5)
[2025-02-10 17:48] LABS: Acetaminophen < 2.0 mcg/mL (10.0-20.0); Alanine Aminotransferase 34 U/L (10-49); Albumin, Serum 4.1 gm/dL (3.4-4.8); Albumin/Globulin Ratio 1.4 (1.2-2.2); Alcohol, Blood Medical < 3.0 mg/dL (0-10.0); Alkaline Phosphatase 86 U/L (46-116); Anion Gap 6 (7-16); Aspartate Amino Transferase 39 U/L (0-34); BUN/Creatinine Ratio 15 Ratio (12-20); Bilirubin,Direct 0.3 mg/dL (0.0-0.3); Bilirubin,Total 0.7 mg/dL (0.3-1.2); Blood Urea Nitrogen 18 mg/dL (9-23); Calcium 8.6 mg/dL (8.3-10.6); Calcium (Corrected) 8.6 mg/dL (8.5-10.1); Carbon Dioxide 34.4 mMol/L (20.0-31.0); Chloride 104 mMol/L (98-107); Creatine Kinase 104 U/L (34-171); Creatinine (Component) 1.2 mg/dL (0.6-1.3); Estimated Creatinine Clearance 63.8 mL/min (>60); Globulin 2.9 gm/dL (2.3-3.5); Glucose 152 mg/dL (74-106); Magnesium 1.6 mg/dL (1.6-2.6); Osmolality,Calculated 291 (275-295); Potassium 3.3 mMol/L (3.4-5.1); Salicylate < 3.0 mg/dL; Sodium 144 mMol/L (136-145); Thyroid Stimulating Hormone 1.22 uIU/mL (0.55-4.78); Total Protein 7.0 gm/dL (5.7-8.2); Troponin I < 0.020 ng/mL (0.0-0.045); eGFR > 60 See Note
[2025-02-10 17:49] LABS: Bilirubin,Urine Negative (Negative); Blood,Urine Negative (Negative); Clarity,Urine Clear (Clear/Hazy); Color,Urine Lt-Yellow (Lt Yel-Yel); Culture Indicated,Urine Not Indicated; Glucose, Urine Negative (Negative); Ketones,Urine Negative (Negative); Leukocyte Esterase,Urine Positive (Negative); Nitrite,Urine Negative (Negative); PH,Urine 8.5 (5.0-7.0); Protein,Urine Trace (Neg - Trace); RBC,Urine 1 /hpf (0-3); Specific Gravity,Urine 1.016 (1.001-1.035); Urobilinogen,Urine 2.0 mg/dL (0.0-1.0); WBC,Urine 2 /hpf (0-5)
--- NOTE | 2025-02-10 18:01 | PD.EDADDENDU ---
Emergency Room Addendum <Anny Hale - Last Filed: 02/10/25 18:01> Addendum Narrative: 1800: Care assumed from Dr. Castro, the previous shift emergency physician. Past medical, surgical, social and family history reviewed. Vitals and home medications reviewed. Results and treatment plan discussed. I will assume the care of the patient at this time and will follow the patient. Please refer to the emergency department record for history and examination from initial visit. <Jorge Heredia DO - Last Filed: 02/10/25 18:44> Addendum Narrative: 1800: Care assumed from Dr. Castro, the previous shift emergency physician. Past medical, surgical, social and family history reviewed. Vitals and home medications reviewed. Results and treatment plan discussed. I will assume the care of the patient at this time and will follow the patient. Please refer to the emergency department record for history and examination from initial visit. Case was signed out to me by Dr. Castro despite the fact that the workup was complete. I went and reexamined the patient and reviewed all labs. Head CT was negative. Urinary tox screen is positive for marijuana and methamphetamine. The chief complaint and not being able to feel his body I am sure is due to the methamphetamine abuse. Vital signs are stable. Patient will be discharged.
[2025-02-10 18:02] LABS: Amphetamine/Methamp Scrn,U Positive (Negative); Barbiturate Screen,Urine Negative (Negative); Benzodiazepines Screen,Urine Negative (Negative); Benzoylecgonine Screen, Ur Negative (Negative); Fentanyl Screen,Urine Negative (Negative); Opiate Screen,Urine Negative (Negative); THC Screen,Urine Positive (Negative)
[2025-02-10 18:12] VITALS: BP 156/94; PULSE 62; RESP 15; TEMP 36.7; O2SAT 100
== END 2025-02-10 19:24 | disposition home or self-care (01) ==
PROVIDERS: Emergency Provider Emergency Medicine
DX: R41.82 Altered mental status, unspecified (principal); I10 Essential (primary) hypertension; F17.210 Nicotine dependence, cigarettes, uncomplicated; R06.02 Shortness of breath; I45.89 Other specified conduction disorders
CPT/HCPCS: 36415; 36600; 70450; 71045; 80053; 80307; 80320; 80329; 81001; 82010; 82140; 82248; 82550; 82803; 83735; 84443; 84484; 85025; 93005; 96361; 96374; 99284; J2312; J2405; J7030; G0480